=== PATIENT | male | born 1990 | race Caucasian/White ===

== ENCOUNTER 2021-01-15 13:25 | Emergency (ER) | payer MEDICAID ==
[~2021-01-15] VITALS: Ht 177.8 cm; Wt 80.0 kg
[2021-01-15] MEDS ORDERED: OXYCODONE HCL 10MG TABLET SR 12HR PO ONE (14:45)
[2021-01-15 15:30] LABS: BASOPHILS % 1.3 % (0.0-2.0); EOSINOPHILS % 1.5 % (0.0-5.0); HEMATOCRIT. 36.9 % (42.0-52.0); HEMOGLOBIN. 12.9 g/dL (14.0-18.0); LYMPHOCYTES % 45.8 % (20.0-50.0); MEAN CORPUSCULAR HEMOGLOBIN 34.4 pg (28.0-32.0); MEAN CORPUSCULAR VOLUME 98.2 fL (80.0-94.0); MEAN PLATELET VOLUME 8.6 fl (7.4-10.4); MONOCYTES % 6.3 % (2.0-8.0); NEUTROPHILS % 45.1 % (40.0-76.0); PLATELET 211 x1000/uL (130-400); RED BLOOD CELL COUNT 3.75 mill/uL (4.7-6.1); RED CELL DISTRIBUTION WIDTH 12.5 % (11.6-14.6)
[2021-01-15 15:35] LABS: CHLORIDE 111 mEq/L (98-107)
[2021-01-15 15:40] LABS: ETHANOL BLOOD 186 mg/dL
[2021-01-15 15:43] LABS: INR 1.1; PROTHROMBIN TIME 11.8 sec (9.6-11.0)
[2021-01-15] MEDS ORDERED: FAMO-135 MT (19:14)
[2021-01-15] MEDS ORDERED: TRAM50TA3 MT ×4 (19:14→20:26)
[2021-01-15] MEDS ORDERED: ONDA4TAB5 MT (19:14)
[2021-01-15 19:48] VITALS: BP 144/82
== END 2021-01-15 19:53 | disposition home or self-care (01) ==
LOC: ER 13:25
DX: K70.30 Alcoholic cirrhosis of liver without ascites (principal); F10.229 Alcohol dependence with intoxication, unspecified; K86.1 Other chronic pancreatitis; Y90.6 Blood alcohol level of 120-199 mg/100 ml
CPT/HCPCS: 36415; 80048; 80076; 80320; 83690; 85025; 85610; 85730; 99283; Z7610; G0480

== ENCOUNTER 2022-10-15 13:05 | Emergency (ER) | payer MEDICAID ==
[~2022-10-15] VITALS: Ht 170.2 cm; Wt 59.0 kg
[~2022-10-15 13:05] MED LIST: FAMO-135 MT; ONDA4TAB5 MT; TRAM50TA3 MT
[2022-10-15 13:56] LABS: EOSINOPHILS % 0.5 % (0.0-5.0); HEMATOCRIT. 34.1 % (42.0-52.0); HEMOGLOBIN. 11.5 g/dL (14.0-18.0); LYMPHOCYTES % 46.1 % (20.0-50.0); MEAN CORPUSCULAR HEMOGLOBIN 33.4 pg (28.0-32.0); MEAN CORPUSCULAR VOLUME 99.1 fL (80.0-94.0); MEAN PLATELET VOLUME 9.1 fl (7.4-10.4); NEUTROPHILS % 48.4 % (40.0-76.0); PLATELET 96 x1000/uL (130-400); RED BLOOD CELL COUNT 3.44 mill/uL (4.7-6.1); RED CELL DISTRIBUTION WIDTH 17.6 % (11.6-14.6)
[2022-10-15 14:11] LABS: CHLORIDE 112 mEq/L (98-107)
[2022-10-15] MEDS ORDERED: MAGNESIUM/ALUMINUM HYDROXIDE/SIMETHICONE 30ML UDC PO STA (14:30)
[2022-10-15] MEDS ORDERED: DICYCLOMINE 10 MG/5 ML ORAL SYR PO STA (14:30)
[2022-10-15] MEDS ORDERED: VISCOUS LIDOCAINE 2% 15 ML UDC PO STA (14:30)
[2022-10-15 14:47] LABS: ETHANOL BLOOD 357 mg/dL
[2022-10-15] MEDS ORDERED: CHLORDIAZEPOXIDE 25MG CAPSULE PO ONE (16:00)
[2022-10-15 16:03] VITALS: BP 136/76
== END 2022-10-15 16:04 | disposition home or self-care (01) ==
LOC: ER 13:27
DX: R10.13 Epigastric pain (principal); T51.0X1A Toxic effect of ethanol, accidental (unintentional), initial encounter; Y92.89 Other specified places as the place of occurrence of the external cause
CPT/HCPCS: 36415; 71045; 80053; 80320; 85025; 99284; G0480

== ENCOUNTER 2023-10-16 20:03 | Emergency (ER) | payer MEDICAID ==
[~2023-10-16] VITALS: Ht 175.3 cm; Wt 80.0 kg
[2023-10-16 20:13] VITALS: TEMP 98.2; O2SAT 98
[2023-10-16] MEDS: SODIUM CHLORIDE 0.9% 1,000 ML IV ONE (21:00)
[2023-10-16 22:00] LABS: BASOPHILS % 0.5 % (0.0-2.0); EOSINOPHILS % 1.7 % (0.0-5.0); HEMATOCRIT. 32.2 % (42.0-52.0); HEMOGLOBIN. 10.9 g/dL (14.0-18.0); LYMPHOCYTES % 45.7 % (20.0-50.0); MEAN CORPUSCULAR HEMOGLOBIN 32.6 pg (28.0-32.0); MEAN CORPUSCULAR HGB CONC 33.8 g/dL (31.0-37.0); MEAN CORPUSCULAR VOLUME 96.5 fL (80.0-94.0); MEAN PLATELET VOLUME 9.2 fl (7.4-10.4); MONOCYTES % 6.9 % (2.0-8.0); NEUTROPHILS % 45.2 % (40.0-76.0); PLATELET 97 x1000/uL (130-400); RED BLOOD CELL COUNT 3.34 mill/uL (4.7-6.1)
[2023-10-16 22:01] LABS: CARBON DIOXIDE 21 mEq/L (21-32); CHLORIDE 114 mEq/L (98-107); POTASSIUM 4.3 mEq/L (3.5-5.1); SODIUM 144 mEq/L (136-145)
[2023-10-16 22:03] LABS: INR 1.2; PROTHROMBIN TIME 13.4 sec (9.6-11.0)
[2023-10-16] MEDS: ONDANSETRON HCL 4MG/2ML INJ IV STA (22:04)
[2023-10-16] MEDS: PANTOPRAZOLE SODIUM 40 MG/VIAL IV ONE (22:04)
[2023-10-16 22:06] LABS: CREATININE 0.8 mg/dL (0.6-1.3)
[2023-10-16 22:07] LABS: ETHANOL BLOOD 300 mg/dL (<10); GLUCOSE 98 mg/dL (70-105); UREA NITROGEN BLOOD 5 mg/dL (9-23)
[2023-10-16 22:08] LABS: ALANINE AMINOTRANSFERASE 27 IU/L (10-49); ALBUMIN 3.2 g/dL (3.2-4.8); ASPARTATE AMINOTRANSFERASE 84 IU/L (<34)
[2023-10-16 22:09] LABS: BILIRUBIN DIRECT 1.1 mg/dL (<=3.0); BILIRUBIN TOTAL 1.7 mg/dL (0.1-1.0); PROTEIN TOTAL 7.5 g/dL (6.0-8.3)
[2023-10-16] MEDS ORDERED: CHLORDIAZEPOXIDE 25MG CAPSULE PO ONE (23:30)
[2023-10-17] MEDS: CHLORDIAZEPOXIDE 25MG CAPSULE PO NR (01:30)
[2023-10-17 04:10] VITALS: BP 118/78; PULSE 80; RESP 16
== END 2023-10-17 04:10 | disposition home or self-care (01) ==
LOC: ER 20:03
DX: T51.0X1A Toxic effect of ethanol, accidental (unintentional), initial encounter (principal); R11.2 Nausea with vomiting, unspecified; R10.13 Epigastric pain; Z79.899 Other long term (current) drug therapy; Y92.89 Other specified places as the place of occurrence of the external cause
CPT/HCPCS: 80076; 80048; 80320; 83690; 85025; 85610; 36415; 71045; 96361; 96374; 96375; 99285; J2405; C9113; J7030; G0480